=== PATIENT | female | born 1995 | race Two or more races ===

== ENCOUNTER 2021-08-26 01:46 | Inpatient (IN) | payer OTHER ==
[~2021-08-26] VITALS: Ht 165.1 cm; Wt 61.2 kg
[2021-08-26] MEDS ORDERED: PRENATAL TABLE1 EAC1 PO (02:27)
[2021-08-28] MEDS ORDERED: NAPR500T14 PO (09:07)
== END 2021-08-28 11:31 | disposition home or self-care (01) | DRG 807 ==
LOC: OB/GYN 01:46 → LDR 01:46 → OB/GYN 01:46
PROVIDERS: ADMIT Obstetrics & Gynecology; ATTEND Student in an Organized Health Care Education/Training Program
PROC: 10E0XZZ Delivery of Products of Conception, External Approach (ICD-10-PCS; principal; 2021-08-26)
PROC: 0KQM0ZZ Repair Perineum Muscle, Open Approach (ICD-10-PCS; 2021-08-26)
PROC: 4A1HXCZ Monitoring of Products of Conception, Cardiac Rate, External Approach (ICD-10-PCS; 2021-08-26)
DX: O70.1 Second degree perineal laceration during delivery (principal); Z37.0 Single live birth; Z3A.40 40 weeks gestation of pregnancy; Z20.822 Contact with and (suspected) exposure to COVID-19